=== PATIENT | male | born 1990 | race Hispanic/Latino ===

== ENCOUNTER 2018-01-03 16:25 | Emergency (ER) | payer BC ==
[2018-01-03 16:36] VITALS: RESP 18
[2018-01-03] MEDS ORDERED: Clindamycin 300 MG in Sodium Chloride 0.9% 50 ML IVPB STA (17:09)
--- NOTE | 2018-01-03 18:30 | C.PDOC ---
History Of Present Illness 27 year old male presents to the ED for evaluation of left arm pain and swelling for 1 week. Patient reports he was sent by Gloria REYES to the ER, cut his left arm 1 week ago at work with a metal, and has been experiencing pain for 4 days. Admits to fevers and chills for the last few days. Up to date with Tetanus vaccination. Denies hx of diabetes, numbness, tingling, and any other associated symptoms. Time Seen by Provider: 01/03/18 16:41 Chief Complaint (Nursing): Upper Extremity Problem/Injury History Per: Patient History/Exam Limitations: no limitations Onset/Duration Of Symptoms: Days Current Symptoms Are (Timing): Still Present Past Medical History Reviewed: Historical Data, Nursing Documentation, Vital Signs Vital Signs: Last Vital Signs Temp 99.9 F H 01/03/18 16:32 Pulse 97 H 01/03/18 16:32 Resp 18 01/03/18 16:32 BP 145/74 01/03/18 16:32 Pulse Ox 100 01/03/18 16:32 Family History: States: Unknown Family Hx - Social History Hx Alcohol Use: No Hx Substance Use: No - Immunization History Hx Tetanus Toxoid Vaccination: Yes Hx Influenza Vaccination: No Hx Pneumococcal Vaccination: No Review Of Systems Constitutional: Positive for: Fever, Chills Musculoskeletal: Positive for: Other (left arm pain.) Neurological: Negative for: Weakness, Numbness, Incoordination Physical Exam - Physical Exam Appears: Other (comfortable.) Skin: Normal Color, Warm, Dry, Other (left upper arm lateral aspect of distal upper arm: 6 cm area of erythema with central eschars. no fluctuance. no induration. no proximal streaking. ) Head: Atraumatic, Normacephalic Cardiovascular: Rhythm Regular, No Murmur Respiratory: Normal Breath Sounds, No Rales, No Rhonchi, No Wheezing Extremity: Normal ROM (x4), Capillary Refill (less than 2 seconds.) Pulses: Left Radial: Normal, Right Radial: Normal Neurological/Psych: Oriented x3, Normal Speech, Normal Motor, Normal Sensation, Normal Reflexes Gait: Steady ED Course And Treatment O2 Sat by Pulse Oximetry: 100 (RA) Pulse Ox Interpretation: Normal Progress Note: Given Cleocin and Toradol. Circled area of erythema and recommended the patient to return if the symptoms worsen. Patient stable for discharge home. Prescribed Cleocin and Naproxen. Disposition Counseled Patient/Family Regarding: Diagnosis, Need For Followup, Rx Given - Disposition Referrals: [facility] [Outside] Disposition: HOME/ ROUTINE Disposition Time: 18:30 Condition: STABLE Additional Instructions: FOLLOW UP WITH YOUR DOCTOR/CLINIC IN 1-2 DAYS USE ANTIBIOTICS DIRECTED RETURN TO ER IMMEDIATELY IF SYMPTOMS WORSEN Prescriptions: Clindamycin [Cleocin] 300 mg PO TID #21 cap Naproxen 375 mg PO BID PRN #20 tablet PRN Reason: pain Instructions: Cellulitis (Skin Infection), Adult (DC) Forms: [employer] (Maldivian) Print Language: GREENLANDIC - POA Present On Arrival: None - Clinical Impression Clinical Impression: Left arm cellulitis - Scribe Statement The provider has reviewed the documentation as recorded by the Scribe (Morelia Lopez) Provider Attestation: All medical record entries made by the Scribe were at my direction and personally dictated by me. I have reviewed the chart and agree that the record accurately reflects my personal performance of the history, physical exam, medical decision making, and the department course for this patient. I have also personally directed, reviewed, and agree with the discharge instructions and disposition.
[2018-01-03 19:02] VITALS: BP 133/70; PULSE 88; TEMP 98.2
[2018-01-03 19:27] VITALS: O2SAT 100
== END 2018-01-03 19:02 | disposition home or self-care (01) ==
LOC: C.ER 16:25
DX: L03.114 Cellulitis of left upper limb (principal)
CPT/HCPCS: 96365; 96375; 99284; J1885